=== PATIENT | male | born 1960 | race Caucasian/White ===

== ENCOUNTER 2019-01-22 15:42 | Inpatient (IN) | payer OTHER ==
[~2019-01-22] VITALS: Ht 177.8 cm; Wt 64.5 kg
[2019-01-22] VITALS (79 sets, daily range): BP systolic 169; BP diastolic 99; PULSE 120; TEMP 99.2; O2SAT 85–98
[2019-01-22 17:10] LABS: BASO % 0.2 % (0.0-2.0); EOS # 0.2 (0.0-0.7); EOS % 1.5 % (0-4.0); GRAN # 8.1 (1.4-6.5); HEMATOCRIT 39.6 % (42.0-52.0); HEMOGLOBIN 13.1 g/dl (13.5-18.0); LYMPH # 1.8 (1.2-3.4); MEAN CELL VOLUME 86 fl (80.0-100.0); MEAN CORPUSCULAR HEMOGLOBIN 28 pg (27.0-31.0); MEAN CORPUSCULAR HGB CONC 33 g/dl (33.0-37.0); MEAN PLATELET VOLUME 10.8 fl (7.4-10.4); MONO # 0.9 (0.1-0.6); MONO % 7.9 % (1.7-9.3); PLATELET COUNT 326 K/mm3 (130-400); RED BLOOD COUNT 4.61 M/mm3 (4.20-5.60); REDCELL DISTRIBUTION WIDTH-CV 13.1 % (11.5-14.5)
[2019-01-22 17:14] LABS: INR 1.1 (0.8-3.0)
[2019-01-22 17:28] LABS: ALBUMIN 4.6 gm/dL (3.5-5.0); BILIRUBIN,TOTAL 0.7 mg/dL (0.0-1.0); C-REACTIVE PROTEIN 4.1 mg/dL (0.0-0.9); CALCIUM 10.6 mg/dL (8.4-10.2); CREATININE, serum 11.04 (0.66-1.25); TOTAL PROTEIN 8.9 gm/dL (6.4-8.2)
[2019-01-22 17:38] LABS: TROPONIN-I 0.064 ng/mL (0.000-0.035)
[2019-01-22 18:44] LABS: COLLECTION METHOD CLEAN CATCH
[2019-01-22 18:50] LABS: PH 7 (5-8); SQUAMOUS EPITHELIAL 0-2 /hpf; URINE APPEARANCE Clear; URINE BACTERIA None Seen /hpf; URINE BILIRUBIN Negative (NEGATIVE); URINE BLOOD 3+ (NEGATIVE); URINE COLOR Straw; URINE GLUCOSE Negative (NEGATIVE); URINE KETONE Negative (NEGATIVE); URINE LEUKOCYTE ESTERASE Negative (NEGATIVE); URINE NITRATE Negative (NEGATIVE); URINE PROTEIN(semi-quant) Negative (NEGATIVE); URINE RBC 20-50 /hpf; URINE UROBILINOGEN Negative (NEGATIVE)
--- NOTE | 2019-01-22 19:50 | NUR ---
Patient arrived via stretcher from ED. IV infusing, egan draining to gravity. Patient able to stand and pivot to bed without difficulty. Tachypnea noted, oxygen in use. Care assumed at this time, see admission assessments.
[2019-01-22 21:08] LABS: CALCIUM 10.4 mg/dL (8.4-10.2); CREATININE, serum 10.03 (0.66-1.25); POTASSIUM 5.4 mmol/L (3.4-5.0)
[2019-01-22 22:26] LABS: ARTERIAL BLD GAS O2 SATURATION 95.6 % (92-100); ARTERIAL BLOOD GAS BASE EXCESS -4.4 (-2-2); ARTERIAL BLOOD GAS HCO3 18.2 meq/L (22-26); ARTERIAL BLOOD GAS PCO2 27.4 mmHg (35-45); ARTERIAL BLOOD GAS PO2 79.2 mmHg (80-100); ARTERIAL BLOOD GAS pH 7.44 (7.35-7.45)
--- NOTE | 2019-01-22 23:30 | NUR ---
Isabel called regarding patient pain level at 2338. See new orders. Patient resting in bed, still tachypneic but patient states is not short of breath at this time. Oxygen being administered via oxymask-patient tolerating well. Karimi draining to gravity-reddish urine noted, see output. IV infusing well. Family remains at bedside.
[2019-01-23] VITALS (663 sets, daily range): BP systolic 140–170; BP diastolic 65–99; PULSE 83–105; TEMP 97.9–99.3; O2SAT 89–99
[2019-01-23 01:02] LABS: CALCIUM 9.5 mg/dL (8.4-10.2); CREATININE, serum 7.99 (0.66-1.25); POTASSIUM 4.7 mmol/L (3.4-5.0)
--- NOTE | 2019-01-23 01:11 | NUR ---
Call made to [facility] regarding venous blood gas. Patient resting between disturbances, states pain is still manageable, family remains at bedside.
--- NOTE | 2019-01-23 01:17 | NUR ---
Lab results reported to Dr. Zepeda, requested to no longer call with results.
[2019-01-23 01:23] LABS: TROPONIN-I 0.094 ng/mL (0.000-0.035)
[2019-01-23 06:17] LABS: BASO % 0.3 % (0.0-2.0); EOS # 0.1 (0.0-0.7); EOS % 0.8 % (0-4.0); GRAN # 5.3 (1.4-6.5); GRAN % 71.4 % (42.2-75.2); LYMPH # 1.2 (1.2-3.4); LYMPH % 16.5 % (20.0-51.0); MEAN CELL VOLUME 86 fl (80.0-100.0); MEAN CORPUSCULAR HGB CONC 33 g/dl (33.0-37.0); MEAN PLATELET VOLUME 10.7 fl (7.4-10.4); MONO # 0.8 (0.1-0.6); MONO % 10.9 % (1.7-9.3); PLATELET COUNT 259 K/mm3 (130-400); RED BLOOD COUNT 3.82 M/mm3 (4.20-5.60); REDCELL DISTRIBUTION WIDTH-CV 13.1 % (11.5-14.5)
[2019-01-23 06:19] LABS: HEMOGLOBIN 10.9 g/dl (13.5-18.0); MEAN CORPUSCULAR HEMOGLOBIN 29 pg (27.0-31.0)
[2019-01-23 06:27] LABS: ALBUMIN 3.8 gm/dL (3.5-5.0); BILIRUBIN,TOTAL 0.4 mg/dL (0.0-1.0); CALCIUM 9.7 mg/dL (8.4-10.2); CREATININE, serum 6.41 (0.66-1.25); POTASSIUM 4.4 mmol/L (3.4-5.0); TOTAL PROTEIN 7.4 gm/dL (6.4-8.2)
--- NOTE | 2019-01-23 07:14 | NUR ---
Bedside report given to CICI Sanders. Care transfered at this time.
--- NOTE | 2019-01-23 07:22 | NUR ---
Report received from Elina BOLANOS and care resumed.
[2019-01-23 09:31] LABS: CALCIUM 9.6 mg/dL (8.4-10.2); CREATININE, serum 5.25 (0.66-1.25); POTASSIUM 4.2 mmol/L (3.4-5.0)
--- NOTE | 2019-01-23 09:35 | NUR ---
Dr Ahumada in to see pt. Will plan to have radiology do a thoracentesis. Will continue to follow.
[2019-01-23 11:46] LABS: PLEURAL FLUID RBC 2000 /mm3 (0-0); PLEURAL FLUID WBC 851 /mm3
[2019-01-23 11:52] LABS: PLEURAL FLUID APPEARANCE CLEAR; PLEURAL FLUID COLOR YELLOW
[2019-01-23 11:53] LABS: GLUCOSE,PLEURAL FLUID 106 mg/dL; TOTAL PROTEIN,PLEURAL FLUID 2.9 gm/dL
[2019-01-23 13:05] LABS: CALCIUM 9.9 mg/dL (8.4-10.2); CREATININE, serum 4.54 (0.66-1.25)
--- NOTE | 2019-01-23 13:48 | NUR ---
JOB ANALYSIS MANAGER student met with the patient to discuss a discharge plan. The patient lives in [place] with his life partner, Neha. They are not legally . The patient has one son, Abdi Clinton in . The patient does not use DME and reports independence with ADLs. The patient's PCP is Dr. Jimenez and patient receives medications from [facility] with no difficulties. The patient is self-pay. The patient reports that the financial counselor is meeting with the his partner to fill out necessary paperwork. The patient does not have advanced directives. A DPOA-HC form was provided. The patient plans to return home upon discharge with Neha providing transportation. financial services rep will continue to follow to ensure a safe discharge.
--- NOTE | 2019-01-23 19:16 | NUR ---
Report given to Ambrocio BOLANOS and care transfered.
--- NOTE | 2019-01-23 20:00 | NUR ---
PATIENT HAS TREMORS, OR INTERNAL SHAKING, DENIES BEING ANXIOUS, JUST WANTS TO REST
[2019-01-24] VITALS (450 sets, daily range): BP systolic 123–166; BP diastolic 76–92; PULSE 66–92; TEMP 97.2–98.4; O2SAT 91–100
--- NOTE | 2019-01-24 00:07 | NUR ---
AT THIS TIME PATIENT IS ALERT AND CAN HOLD A CONVERSATION, TALKATIVE, STATES PAIN IS TOLERABLE.
--- NOTE | 2019-01-24 02:20 | NUR ---
PATIENT ALERT AND AWAKE IN ROOM, B/P IS ELEVATED, PATIENT RATES PAIN TOLERABLE AT 6 OR 8. PAIN MED ADMINISTERED
--- NOTE | 2019-01-24 03:31 | NUR ---
PATIENT GIVEN HYDROLAZINE 10 MG IVP FOR B/P ELEVATION 165/105,
[2019-01-24 06:44] LABS: BASO % 0.5 % (0.0-2.0); EOS # 0.2 (0.0-0.7); EOS % 3.3 % (0-4.0); GRAN % 59.9 % (42.2-75.2); HEMOGLOBIN 11.9 g/dl (13.5-18.0); LYMPH # 1.8 (1.2-3.4); LYMPH % 27.2 % (20.0-51.0); MEAN CELL VOLUME 87 fl (80.0-100.0); MEAN CORPUSCULAR HEMOGLOBIN 28 pg (27.0-31.0); MEAN CORPUSCULAR HGB CONC 32 g/dl (33.0-37.0); MEAN PLATELET VOLUME 10.7 fl (7.4-10.4); MONO # 0.6 (0.1-0.6); MONO % 8.8 % (1.7-9.3); PLATELET COUNT 299 K/mm3 (130-400); RED BLOOD COUNT 4.26 M/mm3 (4.20-5.60); REDCELL DISTRIBUTION WIDTH-CV 12.9 % (11.5-14.5)
[2019-01-24 06:54] LABS: ALBUMIN 3.9 gm/dL (3.5-5.0); BILIRUBIN,TOTAL 0.4 mg/dL (0.0-1.0); CALCIUM 9.4 mg/dL (8.4-10.2); CREATININE, serum 2.68 (0.66-1.25); POTASSIUM 3.8 mmol/L (3.4-5.0); TOTAL PROTEIN 7.7 gm/dL (6.4-8.2)
--- NOTE | 2019-01-24 07:15 | NUR ---
Bedside report recievd from Alex BOLANOS and Nicholas RN. Patient awake in bed, denies meeds at this time. Call light in hand
[2019-01-24 09:17] LABS: INR 1.2 (0.8-3.0); PROTHROMBIN TIME 13.5 SECONDS (9.7-12.8)
--- NOTE | 2019-01-24 13:00 | NUR ---
Patient resting quietly with eyes closed. Offers no S/S pain or discomfort at this time. Call light in reach. sits quietly at bedside, denies needs at this time
--- NOTE | 2019-01-24 14:16 | NUR ---
Dr. Colindres and US tech x2 at bedside for US guided thoracentesis. Consent previously signed by patient. Tolerated procedure well, no complaints. at bedside.
[2019-01-24 14:46] LABS: PLEURAL FLUID RBC 0 /mm3 (0-0); PLEURAL FLUID WBC 915 /mm3
[2019-01-24 14:58] LABS: GLUCOSE,PLEURAL FLUID 127 mg/dL; TOTAL PROTEIN,PLEURAL FLUID 3.3 gm/dL
[2019-01-24 15:05] LABS: PLEURAL FLUID COLOR YELLOW
[2019-01-24 15:06] LABS: PLEURAL FLUID APPEARANCE CLEAR
--- NOTE | 2019-01-24 19:41 | NUR ---
Report given to Alex BOLANOS.
[2019-01-25 00:18] VITALS: BP 150/94; PULSE 84; TEMP 98.1
[2019-01-25 04:22] VITALS: BP 153/96; PULSE 79; TEMP 98.1
[2019-01-25 05:15] LABS: BASO % 0.5 % (0.0-2.0); EOS # 0.4 (0.0-0.7); EOS % 4.6 % (0-4.0); GRAN # 4.5 (1.4-6.5); GRAN % 56.2 % (42.2-75.2); HEMOGLOBIN 12.2 g/dl (13.5-18.0); LYMPH # 2.3 (1.2-3.4); LYMPH % 28.8 % (20.0-51.0); MEAN CELL VOLUME 87 fl (80.0-100.0); MEAN CORPUSCULAR HEMOGLOBIN 29 pg (27.0-31.0); MEAN CORPUSCULAR HGB CONC 33 g/dl (33.0-37.0); MEAN PLATELET VOLUME 10.1 fl (7.4-10.4); MONO # 0.8 (0.1-0.6); MONO % 9.5 % (1.7-9.3); PLATELET COUNT 276 K/mm3 (130-400); RED BLOOD COUNT 4.26 M/mm3 (4.20-5.60); REDCELL DISTRIBUTION WIDTH-CV 12.8 % (11.5-14.5)
[2019-01-25 05:16] LABS: HEMATOCRIT 36.9 % (42.0-52.0)
[2019-01-25 05:30] LABS: ALBUMIN 3.9 gm/dL (3.5-5.0); BILIRUBIN,TOTAL 0.3 mg/dL (0.0-1.0); CALCIUM 9.3 mg/dL (8.4-10.2); CREATININE, serum 1.84 (0.66-1.25); POTASSIUM 4.2 mmol/L (3.4-5.0); TOTAL PROTEIN 7.6 gm/dL (6.4-8.2)
--- NOTE | 2019-01-25 07:00 | NUR ---
Report recieved from Alex BOLANOS. Patient sleeping in bed, offers no s/s discomfort at this time
[2019-01-25 08:00] VITALS: BP 154/98; PULSE 83; TEMP 98.2
[2019-01-25 09:22] VITALS: O2SAT 97
[2019-01-25] MEDS ORDERED: OMNICEF 300MG300 MG PO (10:59)
[2019-01-25] MEDS ORDERED: PROAIR HFA0.09 MG/AC IH (11:00)
--- NOTE | 2019-01-25 11:30 | NUR ---
Messages left for F/U appointments with Dr. Lidya Jimenez, Dr. Warren, Dr. Mckeon and Dr. Adams. This RN will schedule as return calls are recieved.
--- NOTE | 2019-01-25 12:14 | NUR ---
Dr. Warren here, home instructions recieved. Call and schedule in clinic next week for cysto. Teach patient use of leg bag and collection bag
--- NOTE | 2019-01-25 14:40 | NUR ---
This RN at bedside for discharge teaching. Patient and S/O shown how to attach leg bag and large collection bag to egan, pericare instructions given, leg bag and large collection bag, and alcohol preps given. S/O and patient both voice understanding. Reviewed discharge instructions, medications and followup appointments with patient, voices understanding.
--- NOTE | 2019-01-25 15:00 | NUR ---
Out to POV via WC with S/O driving. All belongings sent with patient.
== END 2019-01-25 15:00 | disposition home or self-care (01) | DRG 871 ==
LOC: COL.ER 15:42 → COL.LAB 15:42 → EDSTATUS 16:17 → ICU 19:08
PROVIDERS: Emergency Medicine; Internal Medicine Pulmonary Disease; Nurse Practitioner Family; ADMIT Internal Medicine
PROC: 0W9B3ZZ Drainage of Left Pleural Cavity, Percutaneous Approach (ICD-10-PCS; principal; 2019-01-24)
DX: A41.9 Sepsis, unspecified organism (principal); J18.9 Pneumonia, unspecified organism; J96.01 Acute respiratory failure with hypoxia; I21.A1 Myocardial infarction type 2; N13.2 Hydronephrosis with renal and ureteral calculous obstruction; N17.9 Acute kidney failure, unspecified; I31.3 Pericardial effusion (noninflammatory); J90 Pleural effusion, not elsewhere classified; I50.30 Unspecified diastolic (congestive) heart failure; E87.2 Acidosis; R65.20 Severe sepsis without septic shock; E87.5 Hyperkalemia; F17.210 Nicotine dependence, cigarettes, uncomplicated; R74.8 Abnormal levels of other serum enzymes; N28.89 Other specified disorders of kidney and ureter; N18.9 Chronic kidney disease, unspecified; I08.0 Rheumatic disorders of both mitral and aortic valves; Z86.73 Personal history of transient ischemic attack (TIA), and cerebral infarction without residual deficits
CPT/HCPCS: 99223-AI; 99233-AI; 99239; A4216; J0360; J0456; J0610; J0696; J1170; J1644; J1956; J3010; J7040; J7050